=== PATIENT | female | born 2000 | race Caucasian/White ===

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

== ENCOUNTER 2018-02-05 18:59 | Emergency (ER) | payer OTHER ==
[~2018-02-05] VITALS: Ht 167.6 cm; Wt 74.0 kg
[2018-02-05 19:06] VITALS: BP 121/83
== END 2018-02-05 19:40 | disposition home or self-care (01) ==
LOC: ED 19:36
DX: G40.909 Epilepsy, unspecified, not intractable, without status epilepticus (principal); Z76.0 Encounter for issue of repeat prescription
CPT/HCPCS: 99283

== ENCOUNTER 2018-05-08 21:30 | Emergency (ER) | payer OTHER ==
[~2018-05-08] VITALS: Ht 165.1 cm; Wt 71.5 kg
[2018-05-08 21:31] VITALS: BP 122/69
[2018-05-08] MEDS ORDERED: DIVALPROEX 250 MG TABLET.DR PO ONE (22:30)
== END 2018-05-08 22:53 | disposition home or self-care (01) ==
LOC: ED 22:36
DX: R56.9 Unspecified convulsions (principal); Z76.0 Encounter for issue of repeat prescription
CPT/HCPCS: 99282